=== PATIENT | female | born 1965 | race Caucasian/White ===

== ENCOUNTER 2022-08-18 23:08 | Emergency (ER) | payer MEDICAID, OTHER ==
[~2022-08-18] VITALS: Ht 170.2 cm; Wt 70.3 kg
[~2022-08-18 23:08] MED LIST: HYDR-3326 PO
--- NOTE | 2022-08-18 23:30 | NUR ---
Patient A/O x4. NAD noted. Ambulatory with steady gait.
--- NOTE | 2022-08-18 23:40 | NUR ---
Dr. Anaya at bedside. MSE in progress.
[2022-08-18] MEDS ORDERED: METHYLERGONOVINE MALEATE 0.2 MG/ML AMP IM ONE (23:45)
[2022-08-18 23:57] LABS: HEMATOCRIT 37.7 % (31.2-41.9); MEAN CORPUSCULAR HEMOGLOBIN 33.5 uug (24.7-32.8); MEAN CORPUSCULAR VOLUME 98.8 fL (75.5-95.3); PLATELET COUNT (AUTO) 279 K/uL (179-408)
[2022-08-19 00:04] LABS: CREATININE 0.7 mg/dL (0.6-1.3); POTASSIUM 3.9 mmol/L (3.5-5.1)
--- NOTE | 2022-08-19 00:23 | NUR ---
No methergine available in hospital. Nursing retail department supervisor (Adolph SAUNDERS) aware.
[2022-08-19 00:49] LABS: THYROID STIMULATING HORMONE 89.221 mIU/mL (0.358-3.740)
[2022-08-19 00:56] LABS: *BILIRUBIN,URIN NEGATIVE (NEGATIVE); *BLOOD, URINE 3+ (NEGATIVE); *KETONES,URINE NEGATIVE (NEGATIVE); *UROBILINOGEN,URINE 0.2 E.U./dl (NORMAL); LEUKOCYTE ESTERASE ,URINE NEGATIVE (NEGATIVE); NITRITE, URINE POSITIVE (NEGATIVE); UGLUCOSE NEGATIVE (NEGATIVE)
[2022-08-19 00:57] LABS: *CLARITY,URINE CLOUDY (CLEAR); *COLOR,URINE AMBER (YELLOW)
[2022-08-19 01:18] LABS: BACTERIA,URINE MANY /HPF (NONE SEEN); RBC,URINE TNTC /HPF (0-3); SQUAMOUS EPITHELIAL CELL,UR FEW /HPF (NONE SEEN)
[2022-08-19] MEDS ORDERED: [UNRECOGNIZED DRUG - OTHER] (01:24)
[2022-08-19] MEDS ORDERED: THYR60TA2 PO (01:24)
[2022-08-19] MEDS ORDERED: CYANOCOBALAMIN 1000 MCG/ML VIAL IM ONE (01:30)
[2022-08-19] MEDS ORDERED: CYAN-10 IM (01:31)
[2022-08-19] MEDS ORDERED: SYRI-29 MC (01:31)
[2022-08-19] MEDS ORDERED: CYANOCOBALAMIN 1000 MCG/ML VIAL ONE (01:33)
[2022-08-19] MEDS ORDERED: OXYCODONE/APAP 5-325 MG TABLET ONE (01:54)
[2022-08-19] MEDS ORDERED: OXYCODONE/APAP 5-325 MG TABLET PO ONE (02:00)
--- NOTE | 2022-08-19 02:05 | NUR ---
Patient discharged to home in stable condition. A/O x4. NAD noted. Ambulatory with steady gait. Written and verbal after care instructions given. Patient verbalizes understanding of instructions. Stressed follow up or return to ER for worsening s/s.
[2022-08-19 02:09] VITALS: BP 125/83
== END 2022-08-19 02:05 | disposition home or self-care (01) ==
LOC: ER 23:08
DX: N93.9 Abnormal uterine and vaginal bleeding, unspecified (principal); E03.9 Hypothyroidism, unspecified; E53.8 Deficiency of other specified B group vitamins; D75.89 Other specified diseases of blood and blood-forming organs; Z90.49 Acquired absence of other specified parts of digestive tract; F17.210 Nicotine dependence, cigarettes, uncomplicated; Z59.00 Homelessness unspecified
CPT/HCPCS: 80048; 83735; 84443; 85025; 87077; 36415 ×2; 99283; 81001; 82607; 87186; 87086; 96372; J3420; A4663; J2210

== ENCOUNTER 2022-11-29 10:01 | Emergency (ER) | payer OTHER ==
[~2022-11-29] VITALS: Ht 170.2 cm; Wt 68.0 kg
[~2022-11-29 10:01] MED LIST changes: +CEPH500C2 PO; +CYAN-10 IM; +SYRI-29 MC; +THYR60TA2 PO; +[UNRECOGNIZED DRUG - OTHER]
[2022-11-29 10:40] LABS: HEMATOCRIT 36.1 % (31.2-41.9); MEAN CORPUSCULAR HEMOGLOBIN 31.3 uug (24.7-32.8); MEAN CORPUSCULAR VOLUME 95.7 fL (75.5-95.3); PLATELET COUNT (AUTO) 538 K/uL (179-408)
[2022-11-29 10:54] LABS: CREATININE 1.1 mg/dL (0.6-1.3)
--- NOTE | 2022-11-29 11:00 | NUR ---
Patient in bed, resting. Easily arousable. No acute distress noted. Will continue to monitor.
[2022-11-29] MEDS ORDERED: SWABABLE VALVE TRANSFER SET EA MC ONE (11:42)
[2022-11-29] MEDS ORDERED: IOHEXOL 300MG/ML 100 ML INFUS..BTL ONE (11:42)
[2022-11-29 11:50] LABS: *BILIRUBIN,URIN 1+ (NEGATIVE); *BLOOD, URINE 3+ (NEGATIVE); *CLARITY,URINE CLOUDY (CLEAR); *COLOR,URINE Brown (YELLOW); *KETONES,URINE TRACE (NEGATIVE); LEUKOCYTE ESTERASE ,URINE TRACE (NEGATIVE); NITRITE, URINE NEGATIVE (NEGATIVE); UGLUCOSE NEGATIVE (NEGATIVE)
[2022-11-29] MEDS ORDERED: CEFTRIAXONE /D5W 50ML IVPB **ER PYXIS IV ONE (12:28)
[2022-11-29] MEDS ORDERED: SULF1TAB48 PO (12:28)
[2022-11-29] MEDS ORDERED: DOXY100C5 PO (12:29)
[2022-11-29] MEDS ORDERED: CEFTRIAXONE 1 G in IV DEXTROSE 5% 50 ML IV ONE (12:30)
[2022-11-29] MEDS ORDERED: KETOROLAC TROMETHAMINE 15 MG INJ ONE (12:41)
[2022-11-29] MEDS ORDERED: ONDANSETRON 4 MG/2 ML VIAL ONE (12:41)
[2022-11-29] MEDS ORDERED: KETOROLAC TROMETHAMINE 15 MG INJ IVP ONE (12:45)
[2022-11-29] MEDS ORDERED: ONDANSETRON 4 MG/2 ML VIAL IV ONE (12:45)
[2022-11-29] MEDS ORDERED: HYDROCODONE/APAP 5-325MG TABLET ONE (12:53)
[2022-11-29] MEDS ORDERED: HYDROCODONE/APAP 5-325MG TABLET PO ONE (13:00)
[2022-11-29 13:07] LABS: BACTERIA,URINE NONE SEEN /HPF (NONE SEEN); RBC,URINE TNTC /HPF (0-3); SQUAMOUS EPITHELIAL CELL,UR FEW /HPF (NONE SEEN)
[2022-11-29] MEDS ORDERED: ONDA4TAB5 PO (13:22)
[2022-11-29] MEDS ORDERED: HYDR-4209 PO (13:23)
--- NOTE | 2022-11-29 13:38 | NUR ---
Patient discharged to home in stable condition. Written and verbal after care instructions given. Patient verbalizes understanding of instructions. Stressed follow up or return to ER for worsening s/s.
[2022-11-29 13:39] VITALS: BP 112/75
== END 2022-11-29 13:40 | disposition home or self-care (01) ==
LOC: ER 10:01
DX: N12 Tubulo-interstitial nephritis, not specified as acute or chronic (principal); D72.829 Elevated white blood cell count, unspecified; E03.9 Hypothyroidism, unspecified; Z87.891 Personal history of nicotine dependence; Z79.890 Hormone replacement therapy; R00.0 Tachycardia, unspecified; Z20.2 Contact with and (suspected) exposure to infections with a predominantly sexual mode of transmission; Z91.410 Personal history of adult physical and sexual abuse
CPT/HCPCS: 99285; 74177; 96365; 96375; 86592; 80048; 81001; 87806; 84443; 85025; 85730; 87491; J0696; J1885; J2405; Q9967; 36415; A4663